=== PATIENT | male | born 1990 | race Caucasian/White ===

== ENCOUNTER 2019-04-24 22:19 | Inpatient (IN) | payer SELFPAY ==
[~2019-04-24] VITALS: Ht 180.3 cm; Wt 125.3 kg
[2019-04-24] MEDS ORDERED: IV NORMAL SALINE 1,000ML 1,000 ML IV ONE (23:00)
--- NOTE | 2019-04-24 23:25 | PHYS DOC ---
Adult General Chief Complaint Chief Complaint: CHEST PAIN HPI HPI 29-year-old male presents with seizure, chest pain and left groin pain. The patient has been drinking a lot of alcohol today. He has been having intermittent central chest tightness and pain. He does not really describe how long it lasts. It is moderate in intensity at its worst. Patient presents to the ER because he was reported to have a witnessed seizure at home. His relatives saw him having tonic-clonic movements. The patient does not remember anything about this. He denies loss of bowel or bladder. He did not bite his tongue. Patient's tells me that he has intermittent seizures. His last one was around . He has not been treated for seizures. He is on no seizure medications. The patient was recently seen in another murmur left-sided groin pain. He had a CT scan which showed that he does not have a hernia. He was diagnosed with muscle strain. He still has discomfort in this area. He denies fever or chills. He has no dysuria or urinary frequency. Review of Systems Review of Systems Constitutional: Denies fever or chills [] Eyes: Denies change in visual acuity, redness, or eye pain [] HENT: Denies nasal congestion or sore throat [] Respiratory: Denies cough or shortness of breath [] Cardiovascular: No additional information not addressed in HPI [] GI: Denies abdominal pain, nausea, vomiting, bloody stools or diarrhea [] : Groin pain[] Musculoskeletal: Denies back pain or joint pain [] Integument: Denies rash or skin lesions [] Neurologic: Seizure. Denies headache, focal weakness or sensory changes [] Endocrine: Denies polyuria or polydipsia [] All other systems were reviewed and found to be within normal limits, except as documented in this note. Current Medications Current Medications Current Medications Medications (Trade) Dose Ordered Sig/David Start Time Stop Time Status Last Admin Dose Admin Sodium Chloride 1,000 ml @ 1,000 mls/hr 1X ONCE 04/24/19 23:00 04/24/19 23:59 04/24/19 23:16 1,000 MLS/HR Allergies Allergies Allergies Coded Allergies Type Severity Reaction Last Updated Verified No Known Drug Allergies 04/24/19 No Physical Exam Physical Exam Constitutional: Well developed, well nourished, no acute distress, intoxicated.[] HENT: Normocephalic, atraumatic, bilateral external ears normal, oropharynx moist, no oral exudates, nose normal. [] Eyes: PERRLA, EOMI, conjunctiva are erythematous, no discharge. [] Neck: Normal range of motion, no tenderness, supple, no stridor. [] Cardiovascular:Heart rate regular rhythm, no murmur [] Lungs & Thorax: Bilateral breath sounds clear to auscultation [] Abdomen: Bowel sounds normal, soft, no tenderness, no masses, no pulsatile masses. [] Skin: Warm, dry, no erythema, no rash. [] Back: No tenderness, no CVA tenderness. [] Extremities: No tenderness, no cyanosis, no clubbing, ROM intact, no edema. [] Neurologic: Alert and oriented X 3, normal motor function, normal sensory functi on, no focal deficits noted. [] Psychologic: Affect normal, judgement normal, mood normal. [] EKG EKG Sinus rhythm, rate 97, normal axis, no ST elevations or depressions.[] Radiology/Procedures Radiology/Procedures [] Course & Med Decision Making Course & Med Decision Making Pertinent Labs and Imaging studies reviewed. (See chart for details) The patient's EKG is unremarkable. His head CT is unremarkable. Chest x-rays negative for acute findings. The patient's troponin is 0.079. I have no previous troponins for comparison. The patient will be given Aspirin 324mg. His toxicology screen is positive for alcohol, but no other drugs. I will admit the patient for chest pain rule out. Dr. Hilario has accepted the patient for admission. [] Dragon Disclaimer Dragon Disclaimer This electronic medical record was generated, in whole or in part, using a voice recognition dictation system. The HEART Score for CP Pts HEART Score for Chest Pain: HEART Score for Chest Pain Response (Comments) Value History Moderately Suspicious 1 ECG Nonspecific Repolarizatio 1 Age < 45 0 Risk Factors 1 or 2 Risk Factors 1 Troponin >1-<3x Normal Limit 1 Total 4 Risk Factors: Risk Factors: DM, Current or recent (<one month) smoker, HTN, HLP, family history of CAD, obesity. Risk Scores: Score 0 - 3: 2.5% MACE over next 6 weeks - Discharge Home Score 4 - 6: 20.3% MACE over next 6 weeks - Admit for Clinical Observation Score 7 - 10: 72.7% MACE over next 6 weeks - Early Invasive Strategies Departure Departure: Impression: Primary Impression: Chest pain Additional Impressions: Seizure Alcohol intoxication Elevated troponin I level Disposition: ADMITTED INPATIENT Admitting Physician: Marika Hilario Condition: STABLE Referrals: VERA BYRD (PCP) Problem Qualifiers JULIO C MAE DO Apr 24, 2019 23:25
[2019-04-24 23:33] LABS: BASO # 0.1 x10^3/uL (0.0-0.2); BASO % 1 % (0-3); EOS # 0.1 x10^3/uL (0.0-0.7); EOS % 1 % (0-3); HEMATOCRIT 43.5 % (39.0-53.0); HEMOGLOBIN 15.3 g/dL (13.0-17.5); LYMPH # 2.2 x10^3/uL (1.0-4.8); LYMPH % 23 % (24-48); MEAN CORPUSCULAR HEMOGLOBIN 33 pg (25-35); MEAN CORPUSCULAR HGB CONC 35 g/dL (31-37); MEAN CORPUSCULAR VOLUME 95 fL (79-100); MONO # 0.9 x10^3/uL (0.0-1.1); MONO % 9 % (0-9); NEUT # 6.5 x10^3uL (1.8-7.7); NEUT % 67 % (31-73); PLATELET COUNT 188 x10^3/uL (140-400); RED BLOOD COUNT 4.59 x10^6/uL (4.30-5.70); RED CELL DISTRIBUTION WIDTH 13.6 % (11.5-14.5); WHITE BLOOD COUNT 9.8 x10^3/uL (4.0-11.0)
[2019-04-24 23:38] LABS: BARBITURATES NEG (NEG); BENZODIAZEPINES NEG (NEG); CANNABINOIDS NEG (NEG); COCAINE NEG (NEG); METHADONE NEG (NEG); OPIATES NEG (NEG); PHENCYCLIDINE NEG (NEG)
[2019-04-24 23:39] LABS: AMPHETAMINE/METHAMPHETAMINE NEG (NEG)
[2019-04-24 23:47] LABS: ALBUMIN 3.4 g/dL (3.4-5.0); ALBUMIN/GLOBULIN RATIO 0.9 (1.0-1.7); CALCIUM 8.6 mg/dL (8.5-10.1); CREATININE 0.7 mg/dL (0.7-1.3); GFR 133.3; POTASSIUM 3.2 mmol/L (3.5-5.1); TOTAL BILIRUBIN 0.5 mg/dL (0.2-1.0); TOTAL PROTEIN 7.2 g/dL (6.4-8.2)
--- NOTE | 2019-04-24 23:51 | RAD ---
EXAM: CT HEAD WITHOUT CONTRAST. HISTORY: Seizures. TECHNIQUE: Computed tomography of the head was performed without intravenous contrast. COMPARISON: None. FINDINGS: There is no intracranial hemorrhage. Cleary-white differentiation is preserved. The ventricles are normal in size and position. The visualized paranasal sinuses appear clear. The orbits are unremarkable. The temporal bones are unremarkable. The calvarium reveals no suspicious lesions. IMPRESSION: 1. No acute intracranial findings. *One or more of the following individualized dose reduction techniques were utilized for this examination: 1. Automated exposure control. 2. Adjustment of the mA and/or kV according to patient size. 3. Use of iterative reconstruction technique. Electronically signed by: Irish Saenz MD (04/24/2019 11:48 PM) [facility]
[2019-04-24 23:54] LABS: BACTERIA,URINE 0 /HPF (0-FEW); BILIRUBIN,URINE NEG (NEG); CLARITY,URINE CLEAR; COLOR,URINE STRAW; GLUCOSE,URINE NEG (NEG); NITRITE,URINE NEG (NEG); RBC,URINE 0 /HPF (0-2); SQUAMOUS EPITHELIAL CELL,UR OCC /LPF; UROBILINOGEN,URINE 0.2 mg/dL (0.2 mg/dL); WBC,URINE OCC /HPF (0-4)
[2019-04-25] MEDS ORDERED: ONDANSETRON PF 4 MG/2 ML VIAL. IV PRN (00:45)
--- NOTE | 2019-04-25 00:54 | RAD ---
EXAM: CHEST ONE VIEW. HISTORY: Chest pain. COMPARISON: 04/27/2015. FINDINGS: A frontal view of the chest is obtained. The inspiration is small. There are no confluent infiltrates. There is no pneumothorax or pleural effusion. The heart size is prominent, but this is likely exaggerated in this projection. IMPRESSION: 1. Small inspiration. No confluent infiltrates. Electronically signed by: Irish Saenz MD (04/25/2019 12:52 AM) [facility]
[2019-04-25 01:56] VITALS: BP 146/81
[2019-04-25] MEDS ORDERED: RISP1TAB3 PO (02:13)
[2019-04-25] MEDS ORDERED: ESCI10TA2 PO (02:13)
[2019-04-25] MEDS ORDERED: TRAZ-120 PO (02:13)
[2019-04-25] MEDS ORDERED: HYDR25TA PO (02:13)
[2019-04-25] MEDS ORDERED: HYDR25CA75 PO (02:13)
[2019-04-25] MEDS ORDERED: LISI10TA2 PO (02:13)
[2019-04-25 05:49] VITALS: BP 117/77
[2019-04-25] MEDS ORDERED: hydrOXYzine PAMOATE 25 MG CAPSULE PO PRN (06:15)
[2019-04-25] MEDS: LISINOPRIL 10 MG TABLET PO SCH (08:18)
[2019-04-25] MEDS: risperiDONE 1 MG TABLET. PO SCH (08:18)
[2019-04-25] MEDS: CITALOPRAM 20 MG TABLET. PO SCH (08:18)
[2019-04-25] MEDS ORDERED: STARTER PACK-hydrOXYzine 1 STARTPACK TABLET PO SCH (09:00)
[2019-04-25 11:41] VITALS: BP 134/81
[2019-04-25] MEDS ORDERED: diphenhydrAMINE 50 MG/ML VIAL IVP PRN (12:45)
[2019-04-25] MEDS ORDERED: HALOPERIDOL LACT 5 MG/ML VIAL. IM PRN (12:45)
[2019-04-25] MEDS ORDERED: LORazepam 1 MG TABLET PO PRN ×2 (12:45)
[2019-04-25] MEDS ORDERED: chlordiazePOXIDE HCL 25 MG CAPSULE PO PRN ×2 (12:45)
[2019-04-25] MEDS ORDERED: POTASSIUM CHLORIDE 20 MEQ TABLET.ER. PO ONE (13:00)
--- NOTE | 2019-04-25 14:17 | HP ---
ADMIT DATE: 04/25/2019 HISTORY OF PRESENT ILLNESS: The patient is a 29-year-old male patient who was brought to the Emergency Room as he apparently was witnessed to have seizure-like activity, had been drinking a lot of alcohol, had been having intermittent central chest tightness and pain. He does not really describe how long it lasted, moderate intensity at its worst. He came to the Emergency Room because it was reported that he had witnessed seizure at home. His relatives saw him having tonic-clonic movement, did not remember anything about this. He denied any loss of bowel or bladder control. He did not bite his tongue. He said that he has had intermittent seizures before, the last one was around ; however, he has not been treated for seizure. He is on no seizure medication. He was seen in another facility for left-sided groin pain, had a CT scan showed that he does not have hernia. He was diagnosed with muscle strain and he continued to have discomfort in that area. He denied any dysuria, frequency or hematuria. He was evaluated in the Emergency Room, has had an EKG, which showed that he was in normal sinus rhythm at 97 beats per minute, no ST segment depression or elevation. His CT scan of the head was unremarkable. Chest x-ray was negative for acute finding. However, his troponin was elevated at 0.079. His toxicology screen was positive for alcohol, but negative for other drugs. The patient was admitted to do 2 more sets of cardiac enzymes, consult Cardiology as well as Neurology given that he has seizure disorder. PAST MEDICAL HISTORY: Significant for obviously alcoholism. He said that he has been drinking alcohol since he was 13 years old, has been drinking for the last 16 years, drinking anything including vodka or whiskey and beer. He also is known to have hypertension, autism. PAST SURGICAL HISTORY: Unremarkable. ALLERGIES: He has no known drug allergies. MEDICATIONS: He is currently on following medications: He is on lisinopril 10 mg once a day, escitalopram oxalate 10 mg once a day, trazodone 50 mg at bedtime, risperidone 1 mg daily, hydroxyzine 25 mg 4 times a day and 25 mg 4 times a day as needed. FAMILY HISTORY: He has one older brother who does not keep in touch with. Sister seems to be healthy. His father is a recovering alcoholic. He is alive at the age of 56. Mother at age of 49 because of breast cancer. SOCIAL HISTORY: He is single, has no children. He smokes a pack a day, drinks alcohol daily. He works at the [employer]. REVIEW OF SYSTEMS: The patient denied any blurring of vision, cataract, glaucoma or macular degeneration. Denied any earache, tinnitus or sensorineural deafness. Denied any nosebleeds, stuffy nose or postnasal drip. Denied any sore throat, sore tongue, toothache, hoarseness of voice or difficulty swallowing. Denied any nausea, vomiting, diarrhea or constipation. Denied any hematemesis, melena or hematochezia. Denied any dysuria, frequency or hematuria. He did complain of chest discomfort, but denied any shortness of breath, orthopnea, paroxysmal nocturnal dyspnea. Denied any cough, phlegm or hemoptysis. Denied any chills, rigors or fever. Denied any dizziness, lightheadedness or vertigo. PHYSICAL EXAMINATION: GENERAL: On arrival to the Emergency Room, he looked well and was clearly in no apparent respiratory distress. There was no pallor, jaundice, cyanosis or thyromegaly. No jugular venous distension. No lower limb edema. VITAL SIGNS: Her heart rate was 96, blood pressure was 138/82, temperature was 98.8, respiratory rate was 22 and oxygen saturation was 96%. HEAD, EYES, EARS, NOSE AND THROAT: Showed normocephalic, atraumatic. NECK: Supple. HEART: Showed normal first and second heart sounds. No gallop, rub or murmur. CHEST: Clear to auscultation. No crepitation or rhonchi. ABDOMEN: Distended, soft, nontender. NEUROLOGIC: He was awake, alert, responding appropriately. All cranial nerves intact. EXTREMITIES: He moves all extremities without difficulty, ambulates without assistance or assistive devices. LABORATORY DATA: His white cell count was 9800, hemoglobin 15, hematocrit 44, MCV 95 and platelet count 288,000. His chemistry showed serum sodium 139, potassium 3.2, chloride 104, bicarbonate 24, anion gap of 11, BUN 6, creatinine 0.7, estimated GFR was 133 mL per minute. His glucose was 89, calcium was 8.6. Total bilirubin, AST, ALT, alkaline phosphatase were normal. His first set of troponin was 0.079. Total protein was 7.2, albumin 3.4. Urinalysis was unremarkable. Toxic screen was positive for alcohol. He has had a CT scan of the head, which showed there is no intracranial hemorrhage, pablo-white differentiation is preserved, ventricles are normal in size and position. The visualized paranasal sinuses appear clear. The orbits are unremarkable. The temporal bones are unremarkable. The calvarium reveals no suspicious lesions. Chest x-ray Showed there is no confluent infiltrate. There is no pneumothorax or pleural effusion. The heart size is prominent, but is likely exaggerated in this projection. PLAN: Do 2 more sets of cardiac enzymes. We will check his fasting lipid profile. We have consulted the Cardiology to decide on further management accordingly. We did consult the neurologist and we will start him on alcohol withdrawal protocol. YVROSE WEN MD DR: KRISTI/fei JOB#: [id number] / [id number]
[2019-04-25 15:01] VITALS: BP 130/87
[2019-04-25] MEDS: NICOTINE 21MG PATCH. TD SCH (20:27)
[2019-04-25] MEDS ORDERED: traZODone 50 MG TABLET. PO SCH (21:00)
[2019-04-25 23:34] VITALS: BP 130/85
--- NOTE | 2019-04-26 01:36 | CONS ---
DATE OF CONSULTATION: REFERRING PHYSICIAN: Dr. Hilario. REASON FOR CONSULTATION: New onset of seizure. HISTORY OF PRESENT ILLNESS: This is a 29-year-old right-handed male who was admitted through Emergency Room after he presented with new onset of seizure described as generalized tonic-clonic seizure. The patient did not recall the event. He denies any previous seizure in near past; however, he did have seizure disorder at age of 6, but currently has not been taking any anticonvulsant. Currently, the patient complains of generalized weakness and tiredness. He has been drinking alcohol heavily in the last week, and he said he drinks 1 gallon of whiskey daily. The patient denies any history of alcohol withdrawal. Currently, he denies headaches, visual disturbances, nausea, vomiting, chest pain, shortness of breath or palpitations. He described substernal and gastric pain, probably due to alcohol heavy drinking. Initial enhanced head CT scan revealed no acute intracranial process. PAST MEDICAL HISTORY: Significant for anxiety, depression, obesity, hypertension, chronic low back pain, autism, difficulty sleeping. FAMILY HISTORY: Noncontributory. SOCIAL HISTORY: The patient is single. 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 He smokes 1 pack of cigarettes daily. He drinks alcohol heavily. CURRENT HOME MEDICATIONS: Trazodone 50 mg nightly, Celexa 20 mg daily, Risperdal 1 mg daily, lisinopril 10 mg p.o. daily, and hydroxyzine 25 mg q.i.d. p.r.n. for anxiety. ALLERGIES: No known drug allergies. REVIEW OF SYSTEMS: A 10-point review of system was performed as mentioned above in history of present illness. PHYSICAL EXAMINATION: GENERAL: Obese male, not in acute distress. VITAL SIGNS: Blood pressure 170/77, respiratory rate 20, pulse is 74 and regular, temperature is 98.2, oxygen saturation 96% on room air. HEENT: Normocephalic, atraumatic, otherwise unremarkable. NECK: Supple. Negative for carotid bruit, lymphadenopathy or thyromegaly. LUNGS: Clear to A and P. CARDIOVASCULAR: Regular rate and rhythm, normal S1, S2. There is no S3, S4 or murmur. ABDOMEN: Soft. Bowel sounds positive. EXTREMITIES: Negative for cyanosis, clubbing or pitting edema. NEUROLOGIC: MENTAL STATUS: The patient is alert and oriented x 3. Speech is fluent. There is no language dysfunction. Judgment and abstract thinking are fair. The patient denies hallucination or delusion. CRANIAL NERVES: Visual conde are full. The pupils are reactive to light and accommodation. The extraocular movements are intact. There is no nystagmus. There is no facial motor or sensory deficit. Hearing is intact bilaterally. The palate is elevated symmetrically. Sternocleidomastoid muscles are powerful bilaterally. The patient shrugs his shoulders symmetrically, protrudes his tongue in the midline without fasciculation or atrophy. MOTOR: No focal muscle bulk was seen. The tone is normal. The strength is 5/5 throughout. SENSORY EXAMINATION: Normal pinprick, light touch, vibratory and position senses. Deep tendon reflexes were symmetric and active without pathologic responses. Gait and coordination are normal. LABORATORY DATA: CBC revealed white blood cells of 9800, hemoglobin 15.3, hematocrit 43.5, platelet count 188,000. Chemistry revealed sodium 139, potassium 3.2, chloride 104, CO2 of 24, BUN 6, creatinine 0.7, glucose is 89, calcium is 8.6. Troponin level is 0.7. The patient had 3 series and was around 0.068 from this morning. Urinalysis is negative for urinary tract infections, but urine drug screen is positive for alcohol. CT scan and chest x-ray as mentioned above in history of present illness. IMPRESSION: 1. Seizure-like activity described as tonic-clonic seizure, possible epileptic versus nonepileptic or alcohol withdrawal seizure.. 2. Alcohol drinking. 3. Multiple medical problems including hypertension, obesity, chronic lower back pain, anxiety and depression, history of seizure disorder since age of 6. No recurrence until recently. RECOMMENDATIONS: 1. The patient needs an electroencephalogram which can be done on an outpatient basis. 2. The patient should avoid driving until the above test is done. 3. Continue with current management initiated by Dr. Hilario. 4. Alcohol cessation. 5. Watch for alcohol withdrawal seizure or symptoms. M Niya COLEMAN MD DR: ELIE/fei JOB#: [id number] / [id number]
[2019-04-26 06:24] VITALS: BP 148/82
[2019-04-26 07:48] LABS: CALCIUM 8.4 mg/dL (8.5-10.1); CREATININE 0.7 mg/dL (0.7-1.3); GFR 133.3; POTASSIUM 3.5 mmol/L (3.5-5.1)
[2019-04-26] MEDS: CITALOPRAM 20 MG TABLET. PO SCH (08:25)
[2019-04-26] MEDS: LISINOPRIL 10 MG TABLET PO SCH (08:25)
[2019-04-26] MEDS: risperiDONE 1 MG TABLET. PO SCH (08:25)
[2019-04-26] MEDS: NICOTINE 21MG PATCH. TD SCH (08:27)
[2019-04-26] MEDS ORDERED: FOLIC ACID 1 MG TABLET PO SCH (09:00)
[2019-04-26] MEDS ORDERED: MULTIVITAMIN with MINERAL TABLET. PO SCH (09:00)
[2019-04-26 10:51] VITALS: BP 146/88
[2019-04-26 14:25] VITALS: BP 139/81
--- NOTE | 2019-04-26 14:30 | CARD ---
MR#: [id number] Date of Study: 04/26/2019 Ordering Physician: BRUNO MUELLER, Referring Physician: BRUNO MUELLER, Tech: Laura Resendez RDCS APPROVED REPORT EXAM: Two-dimensional and M-mode echocardiogram with Doppler and color Doppler. Other Information Quality : Good INDICATION Elevated Troponin 2D DIMENSIONS RVDd3.6 (2.9-3.5cm)Left Atrium(2D)4.0 (1.6-4.0cm) IVSd1.2 (0.7-1.1cm)Aortic Root(2D)3.3 (2.0-3.7cm) LVDd6.0 (3.9-5.9cm)PWd1.1 (0.7-1.1cm) LVDs4.2 (2.5-4.0cm)FS (%) 29.0 % SV98.0 mlLVEF(%)54.9 (>50%) Aortic Valve AoV Peak Charlie.150.2cm/sAoV VTI29.8cm AO Peak GR.9.0mmHgAO Mean GR.5mmHg MELINA (VTI)3.03cm2 Mitral Valve MV E Vnbqagti773.1cm/sMV DECEL [id number] MV A Yytolyiy66.4cm/sE/A Ratio2.4 Tricuspid Valve TR P. Vncnfgmx174gr/sRAP [id number] TR Peak Gr.95alAmPJFN71nwSd LEFT VENTRICLE The left ventricle is normal size. There is mild concentric left ventricular hypertrophy. Left ventri doris systolic function is normal. The Ejection Fraction is 50-55%. There is normal LV segmental wall m otion. Transmitral Doppler flow pattern is Grade II-pseudonormal filling dynamics. RIGHT VENTRICLE The right ventricle is normal size. The right ventricular systolic function is normal. ATRIA The left atrium size is normal. The right atrium size is normal. The interatrial septum is intact wit h no evidence for an atrial septal defect or patent foramen ovale as noted on 2-D or Doppler imaging. AORTIC VALVE The aortic valve is normal in structure and function. Doppler and Color Flow revealed no significant aortic regurgitation. There is no significant aortic valvular stenosis. MITRAL VALVE The mitral valve is normal in structure and function. There is no evidence of mitral valve prolapse. There is no mitral valve stenosis. Doppler and Color Flow revealed no mitral valve regurgitation note d. TRICUSPID VALVE The tricuspid valve is normal in structure and function. Doppler and Color Flow revealed trace tricus pid regurgitation. The PA pressure was estimated at 29 mmHg. There is no tricuspid valve stenosis. PULMONIC VALVE The pulmonic valve is not well visualized. Doppler and Color Flow revealed no pulmonic valvular regur gitation. There is no pulmonic valvular stenosis. GREAT VESSELS The aortic root is normal in size. The ascending aorta is normal in size. The IVC is normal in size a nd collapses >50% with inspiration. PERICARDIAL EFFUSION There is no evidence of significant pericardial effusion. Critical Notification Critical Value: No <Conclusion> The left ventricle is normal size. Left ventricle systolic function is normal. The Ejection Fraction is 50-55%. There is mild concentric left ventricular hypertrophy. There is no significant aortic valvular stenosis. Doppler and Color Flow revealed no significant aortic regurgitation. Doppler and Color Flow revealed no mitral valve regurgitation noted. Doppler and Color Flow revealed trace tricuspid regurgitation. The PA pressure was estimated at 29 mmHg. Signed by : Bruno Mueller MD Electronically Approved : 04/26/2019 14:29:57
--- NOTE | 2019-04-27 01:02 | DS ---
DATE OF DISCHARGE: 04/26/2019 HISTORY OF PRESENT ILLNESS: The patient is a 29-year-old male patient who was admitted to the Emergency Room who apparently was witnessed to have seizure-like activity, had been drinking a lot of alcohol and had intermittent central chest tightness and pain. He is not really very specific about it but however his cardiac enzyme was slightly elevated and his first troponin was 0.079, 0.07 and 0.068. His fasting lipid profile was normal. The expressive therapist recommended doing an echocardiogram which was done and showed that the patient's left ventricle is normal in size. Left ventricular systolic function is normal, ejection fraction of 50-55%. There is mild concentric left ventricular hypertrophy. No significant aortic valvular stenosis, no significant aortic regurgitation, no mitral valve regurgitation, trace tricuspid regurgitation. Estimated pulmonary artery pressure was 29 mmHg. He was seen in consultation by Dr. Chavez who recommended an EEG as an outpatient and the patient remained hemodynamically stable. A decision was made to discharge him home, to follow with Dr. Chavez. PHYSICAL EXAMINATION: GENERAL: When I saw him today, he looked well and was clearly in no apparent respiratory distress. No pallor, jaundice, cyanosis or thyromegaly. No jugular venous distention. No limb edema. VITAL SIGNS: Her heart rate was 74, blood pressure was 139/81, temperature was 97.8, respiratory rate 20 and oxygen saturation was 98%. The rest of clinical exam is stable. LABORATORY DATA: His lab work this morning showed a serum sodium 140, potassium 3.5, chloride 108, bicarbonate 23, anion gap of 9, BUN 8, creatinine 0.7, estimated GFR was 133 mL per minute, his glucose 110, calcium was 8.4, magnesium 2. Serum triglyceride 134, total cholesterol 95, LDL cholesterol 32, VLDL was 26, HDL was 37, the ratio was 2. His hemoglobin 15, hematocrit 44, with normal white cell count and platelets. Urinalysis was unremarkable and toxic screen was positive for alcohol. DISCHARGE MEDICATIONS: He was discharged on escitalopram oxalate 10 mg once a day, hydroxyzine 25 mg 4 times a day, lisinopril 10 mg once a day, risperidone 1 mg daily and trazodone 50 mg at bedtime. FINAL DISCHARGE DIAGNOSES: Seizure-like activity described as tonic-clonic seizure, alcohol dependence, alcohol intoxication, hypertension, obesity, chronic lower back pain, anxiety and depression. YVROSE WEN MD DR: KRISTI/fei JOB#: [id number] / [id number]
--- NOTE | 2019-04-29 06:38 | EKG ---
[address] [address] Test Date: 2019-04-24 Test Time: 22:32:08 Pat Name: DEION NOLASCO Department: Room: 123 A Gender: M Shoe Maker: : 1990 Requested By: YVROSE WEN Order Number: [id number] Reading MD: Measurements Intervals [place] Rate: 97 P: 26 FL: 136 QRS: 36 QRSD: 100 T: 20 QT: 354 QTc: 454 Interpretive Statements SINUS RHYTHM QRS(T) CONTOUR ABNORMALITY CONSIDER INFERIOR MYOCARDIAL DAMAGE POSSIBLY ABNORMAL ECG RI6.01 No previous ECG available for comparison
== END 2019-04-26 16:35 | disposition home or self-care (01) | DRG 101 ==
LOC: ER 22:19 → 1 SOUTH 04-25 01:03
PROVIDERS: ADMIT Internal Medicine; ATTEND Internal Medicine
DX: G40.409 Other generalized epilepsy and epileptic syndromes, not intractable, without status epilepticus (principal); F84.0 Autistic disorder; F10.229 Alcohol dependence with intoxication, unspecified; F17.210 Nicotine dependence, cigarettes, uncomplicated; F32.9 Major depressive disorder, single episode, unspecified; F41.9 Anxiety disorder, unspecified; E66.9 Obesity, unspecified; G89.29 Other chronic pain; I11.9 Hypertensive heart disease without heart failure; Z80.3 Family history of malignant neoplasm of breast; Z68.38 Body mass index [BMI] 38.0-38.9, adult; Z79.899 Other long term (current) drug therapy
CPT/HCPCS: 36415; 70450; 71045; 80048; 80053; 80061; 80307; 81001; 83735; 84484; 85025; 93306; 96360; 99406; Q0177; 99285-25; J7030

== ENCOUNTER 2021-06-19 12:45 | Emergency (ER) | payer SELFPAY ==
[~2021-06-19] VITALS: Ht 180.3 cm; Wt 122.0 kg
[~2021-06-19 12:45] MED LIST: ESCI10TA90 PO; HYDR25CA75 PO; HYDR25TA PO; LISI10TA16 PO; RISP1TAB88 PO; TRAZ-120 PO
[2021-06-19 13:12] VITALS: BP 164/87
[2021-06-19] MEDS ORDERED: LISI10TA16 PO (13:35)
--- NOTE | 2021-06-19 13:36 | PHYS DOC ---
Past History Past Medical History: Alcoholism, Anxiety, Hypertension, Seizure Past Surgical History: No Surgical History Alcohol Use: Heavy Drug Use: None General Adult EDM: Chief Complaint: HYPERTENSION HPI: HPI: Patient is a [age] year old [sex] who presents with [] Review of Systems: Review of Systems: Constitutional: Denies fever or chills Eyes: Denies change in visual acuity HENT: Denies nasal congestion or sore throat Respiratory: Denies cough or shortness of breath Cardiovascular: Denies chest pain or edema GI: Denies abdominal pain, nausea, vomiting, bloody stools or diarrhea : Denies dysuria Musculoskeletal: Denies back pain or joint pain Integument: Denies rash Neurologic: Denies headache, focal weakness or sensory changes Endocrine: Denies polyuria or polydipsia Lymphatic: Denies swollen glands Psychiatric: Denies depression or anxiety Allergies: Allergies: Allergies Coded Allergies Type Severity Reaction Last Updated Verified No Known Drug Allergies 04/24/19 No Physical Exam: PE: Constitutional: Well developed, well nourished, no acute distress, non-toxic appearance. [] HENT: Normocephalic, atraumatic, bilateral external ears normal, oropharynx moist, no oral exudates, nose normal. [] Eyes: PERRLA, EOMI, conjunctiva normal, no discharge. [] Neck: Normal range of motion, no tenderness, supple, no stridor. [] Cardiovascular:Heart rate regular rhythm, no murmur [] Lungs & Thorax: Bilateral breath sounds clear to auscultation [] Abdomen: Bowel sounds normal, soft, no tenderness, no masses, no pulsatile masses. [] Skin: Warm, dry, no erythema, no rash. [] Back: No tenderness, no CVA tenderness. [] Extremities: No tenderness, no cyanosis, no clubbing, ROM intact, no edema. [] Neurologic: Alert and oriented X 3, normal motor function, normal sensory function, no focal deficits noted. [] Psychologic: Affect normal, judgement normal, mood normal. [] Current Patient Data: Vital Signs: Vital Signs Date Time Temp Pulse Resp B/P (MAP) Pulse Ox O2 Delivery O2 Flow Rate FiO2 06/19/21 13:12 100 16 164/87 (112) 96 Room Air 06/19/21 12:53 97.9 EKG: EKG: @1312 NSR at 99bpm, NO ST elevation, PACs, QRS 96ms, QT/QTc 360/468ms Radiology/Procedures: Radiology/Procedures: [] Heart Score: Risk Factors: Risk Factors: DM, Current or recent (<one month) smoker, HTN, HLP, family history of CAD, obesity. Risk Scores: Score 0 - 3: 2.5% MACE over next 6 weeks - Discharge Home Score 4 - 6: 20.3% MACE over next 6 weeks - Admit for Clinical Observation Score 7 - 10: 72.7% MACE over next 6 weeks - Early Invasive Strategies Course & Med Decision Making: Course & Med Decision Making Pertinent Labs and Imaging studies reviewed. (See chart for details) [] Dragon Disclaimer: Dragon Disclaimer: This electronic medical record was generated, in whole or in part, using a voice recognition dictation system. Departure Departure: Impression: Primary Impression: Hypertension Qualified Codes: I10 - Essential (primary) hypertension Additional Impressions: Medication refill Noncompliance with medications Disposition: HOME / SELF CARE / HOMELESS Condition: STABLE Referrals: VERA BYRD (PCP) Patient Instructions: Hypertension, Medication Refill, Emergency Department Scripts Lisinopril (LISINOPRIL) 10 Mg Tablet 1 TAB PO DAILY for HTN, #14 TAB Prov: APRIL BOLAÑOS DO 06/19/21 APRIL BOLAÑOS DO Jun 19, 2021 13:36
--- NOTE | 2021-06-19 14:49 | EKG ---
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
== END 2021-06-19 13:45 | disposition home or self-care (01) ==
LOC: ER 12:45
DX: I10 Essential (primary) hypertension (principal); Z76.0 Encounter for issue of repeat prescription
CPT/HCPCS: 93005; 99283

== ENCOUNTER 2021-07-15 08:53 | Emergency (ER) | payer SELFPAY ==
[~2021-07-15] VITALS: Ht 180.3 cm; Wt 122.0 kg
[2021-07-15 08:53] VITALS: BP 131/78
--- NOTE | 2021-07-15 08:58 | PHYS DOC ---
Past History Past Medical History: Alcoholism, Anxiety, Hypertension, Seizure Past Surgical History: No Surgical History Alcohol Use: Heavy Drug Use: None Adult General Chief Complaint Chief Complaint: CHEST PAIN HPI HPI Patient is a 31-year-old male presenting via EMS for chest pain. States chest pain started 1 week ago without any known event, trauma, ingestion or other exposure. Rest makes better, physical activity makes worse. Pain is described as dull pressure over center of sternum and does not radiate. Patient states chronicity of symptoms concerned him to prompting him to come in. He has history of alcohol abuse with last drink approximately 3 days ago. Also admits to tobacco use. Has history of hypertension for which he takes lisinopril but no other known diagnosed medical conditions. Does admit to family history of early cardiac disease less than 50 years old. No personal history of passing out with activity or other concerning abnormalities. He has no known sick contacts or travel, is not vaccinated against COVID-19 Review of Systems Review of Systems Fourteen body systems of review of systems have been reviewed. See HPI for pertinent positives and negative responses, other [place] all other systems are negative, non-pertinent or non-contributory Allergies Allergies Allergies Coded Allergies Type Severity Reaction Last Updated Verified No Known Drug Allergies 04/24/19 No Physical Exam Physical Exam Constitutional: Well developed, well nourished, no acute distress, non-toxic appearance. HENT: Normocephalic, atraumatic, bilateral external ears normal, oropharynx mois t, no oral exudates, nose normal. Eyes: PERRLA, EOMI, conjunctiva normal, no discharge. Neck: Normal range of motion, no tenderness, supple, no stridor. Cardiovascular: Heart rate regular, sinus rhythm, no murmurs rubs or gallops Lungs & Thorax: Bilateral breath sounds clear to auscultation Abdomen: Bowel sounds normal, soft, no tenderness, no masses, no pulsatile masses. Nonsurgical abdomen, no peritoneal signs Skin: Warm, dry, no erythema, no rash. Back: No tenderness, no CVA tenderness. Extremities: No tenderness, no cyanosis, no clubbing, ROM intact, no edema. Neurologic: Alert and oriented X 3, grossly normal motor & sensory function, no focal deficits noted. Psychologic: Anxious affect and mood Current Patient Data Vital Signs Vital Signs Date Time Temp Pulse Resp B/P (MAP) Pulse Ox O2 Delivery O2 Flow Rate FiO2 11/7/21 08:53 77 20 131/78 (95) 99 Room Air 07/15/21 08:53 97.9 Vital Signs Date Time Temp Pulse Resp B/P (MAP) Pulse Ox O2 Delivery O2 Flow Rate FiO2 07/15/21 08:53 97.9 77 131/78 (95) 99 07/15/21 08:53 20 Room Air Lab Results Current Medications Medications (Trade) Dose Ordered Sig/David Route PRN Reason Start Time Stop Time Status Last Admin Dose Admin Aspirin (Jessica Aspirin) 325 mg 1X ONCE PO 07/15/21 09:15 07/15/21 09:16 DC 07/15/21 09:18 Lorazepam (Ativan Inj) 2 mg STK-MED ONCE .ROUTE 07/15/21 09:09 07/15/21 09:09 DC Lorazepam (Ativan Inj) 1 mg 1X ONCE IVP 07/15/21 09:15 07/15/21 09:16 DC 07/15/21 09:11 EKG EKG EKG ordered and interpreted by myself at 09 902 hours as sinus rhythm at 75 bpm, unremarkable intervals, no axis deviation, no obvious ischemic findings, no STEMI Radiology/Procedures Radiology/Procedures INDICATION: Reason: chest pain / Spl. Instructions: / History: COMPARISON: April 2019 FINDINGS: Single view of chest obtained. Repeat demonstration of prominent cardiomediastinal silhouette which is similar to prior. Minimal haziness at the lung bases without consolidation elsewhere in the lungs IMPRESSION: * Minimal haziness at lung bases without consolidation elsewhere in the lungs. Given the location the most likely cause would be atelectasis. * Cardiac silhouette again prominent. Electronically signed by: Demario Woo MD (07/15/2021 9:19 AM) [id number] Heart Score C/O Chest Pain: Yes HEART Score for Chest Pain: HEART Score for Chest Pain Response (Comments) Value History Slighlty/Non-Suspicious 0 ECG Normal 0 Age < 45 0 Risk Factors 1 or 2 Risk Factors 1 Troponin < Normal Limit 0 Total 1 Risk Factors: Risk Factors: DM, Current or recent (<one month) smoker, HTN, HLP, family history of CAD, obesity. Risk Scores: Risk Factors: DM, Current or recent (<one month) smoker, HTN, HLP, family history of CAD, obesity. Course & Med Decision Making Course & Med Decision Making ABCs unremarkable. I disclosed entirety of ER findings and discussed most likely diagnosis of chest pain, likely noncardiac and atypical in etiology. Other diagnoses were discussed with patient such as ACS, pneumothorax, pneumonia and other potentially life-threatening diagnoses but all deemed less likely causes of patient's presentation. I reviewed heart score, PERC etc. and all unremarkable, disclose little indication for further diagnostic work-up and/or need for hospitalization at present. Supportive care with close outpatient PCP and senior graphic designer follow-up advised. Plan of care discussed at length with need for close outpatient follow-up to review today's ER visit stressed. Strict return precautions were also discussed at length with good understanding verbalized by patient. Patient voiced understanding and agreement with the plan. Patient knows to come back for repeat evaluation if concerning signs or symptoms present prior to outpatient follow-up. Hemodynamically stable, ambulatory and well-appearing at time of disposition. Dragon Disclaimer Dragon Disclaimer This electronic medical record was generated, in whole or in part, using a voice recognition dictation system. Departure Departure: Impression: Primary Impression: Atypical chest pain Additional Impression: Person under investigation for COVID-19 Disposition: HOME / SELF CARE / HOMELESS Condition: STABLE Referrals: VERA BYRD (PCP) Additional Instructions: You were seen for chest pain. Your workup did not show any acute abnormalities today, but does not indicate that you do not have underlying cardiovascular disease. You do need to follow up with your primary doctor and potentially a senior graphic designer for further evaluation and treatment. You should return to the ED if you develop worsening chest pain, shortness of breath, fever, abnormal sweating, leg swelling, or any other new or concerning symptoms. You were seen for fatigue and possible infection with COVID-19. Your physical exam was reassuring. Your chest x-ray was normal. We tested you for COVID-19 but this test does not come back for 1 to 2 days. In the meantime you need to quarantine yourself at home away from all other individuals, especially those who are elderly or have any other chronic health issues or an immunocompromised status. You should return to the ED if you develop worsening cough, shortness of breath, chest pain, or any other new or concerning symptoms. Alternate Tylenol and ibuprofen as needed for body aches and pain. If your test does come back positive you need to quarantine yourself for 10 days until symptom-free. You should make sure to drink plenty of fluids and get plenty of rest. Problem Qualifiers REED ABREU DO Jul 15, 2021 08:58
--- NOTE | 2021-07-15 09:09 | EKG ---
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
[2021-07-15] MEDS ORDERED: ASPIRIN 325 MG TABLET PO ONE (09:15)
--- NOTE | 2021-07-15 09:21 | RAD ---
INDICATION: Reason: chest pain / Spl. Instructions: / History: COMPARISON: April 2019 FINDINGS: Single view of chest obtained. Repeat demonstration of prominent cardiomediastinal silhouette which is similar to prior. Minimal haziness at the lung bases without consolidation elsewhere in the lungs IMPRESSION: * Minimal haziness at lung bases without consolidation elsewhere in the lungs. Given the location th e most likely cause would be atelectasis. * Cardiac silhouette again prominent. Electronically signed by: Demario Woo MD (07/15/2021 9:19 AM) [id number]
[2021-07-15 10:02] LABS: CALCIUM 9.4 mg/dL (8.5-10.1); CREATININE 0.5 mg/dL (0.7-1.3); GFR 193.9; POTASSIUM 4.5 mmol/L (3.5-5.1)
[2021-07-15 10:10] LABS: ALBUMIN 3.9 g/dL (3.4-5.0); TOTAL BILIRUBIN 0.6 mg/dL (0.2-1.0); TOTAL PROTEIN 7.9 g/dL (6.4-8.2)
[2021-07-15 10:17] LABS: BASO # 0.1 x10^3/uL (0.0-0.2); BASO % 1 % (0-3); EOS # 0.1 x10^3/uL (0.0-0.7); EOS % 1 % (0-3); HEMATOCRIT 50.1 % (39.0-53.0); HEMOGLOBIN 17.4 g/dL (13.0-17.5); LYMPH # 2.7 x10^3/uL (1.0-4.8); LYMPH % 28 % (24-48); MEAN CORPUSCULAR HEMOGLOBIN 33 pg (25-35); MEAN CORPUSCULAR HGB CONC 35 g/dL (31-37); MEAN CORPUSCULAR VOLUME 95 fL (79-100); MONO % 10 % (0-9); NEUT # 5.9 x10^3uL (1.8-7.7); NEUT % 61 % (31-73); PLATELET COUNT 212 x10^3/uL (140-400); RED BLOOD COUNT 5.28 x10^6/uL (4.30-5.70); RED CELL DISTRIBUTION WIDTH 13.4 % (11.5-14.5); WHITE BLOOD COUNT 9.7 x10^3/uL (4.0-11.0)
== END 2021-07-15 11:05 | disposition home or self-care (01) ==
LOC: ER 08:53
DX: R07.2 Precordial pain (principal); I10 Essential (primary) hypertension; F41.9 Anxiety disorder, unspecified; F10.20 Alcohol dependence, uncomplicated; Z20.822 Contact with and (suspected) exposure to COVID-19; Y90.0 Blood alcohol level of less than 20 mg/100 ml
CPT/HCPCS: 36415; 71045; 80053; 84484; 85025; 93005; 96374; 99285; G0480; J2060

== ENCOUNTER 2021-08-06 21:14 | Emergency (ER) | payer SELFPAY ==
[~2021-08-06] VITALS: Ht 180.3 cm; Wt 122.0 kg
--- NOTE | 2021-08-06 22:22 | PHYS DOC ---
Past History Past Medical History: Alcoholism, Anxiety, Asthma, Hypertension, Seizure Additional Past Medical Histor: ASD, BACK PAIN (ALEXEI VALENZUELA APRN) Past Surgical History: No Surgical History (ALEXEI VALENZUELA APRN) Smoking: Greater than 1 pack/day Alcohol Use: Sober Drug Use: None (ALEXEI VALENZUELA APRN) General Adult EDM: Chief Complaint: ALLERGIC REACTION HPI: HPI: Patient is a 31-year-old male that presents today from [facility] with concern with allergic reaction. Patient states around 7:00 this evening he started feeling his face gets flushed in the back of his legs to get flushed, he states that occurred about 1 hour after taking his lisinopril at 6 PM. Patient states he is taking lisinopril on and off for the last couple years and has never had a reaction like this. Patient states he is also very anxious, states he has not been sleeping very well, and states that he recently lost his job and has been taking care of his dad at home. Patient also states he has a history of asthma but does not have an inhaler. Patient does smoke cigarettes, he states that he also quit drinking about a month ago (ALEXEI VALENZUELA APRN) Review of Systems: Review of Systems: Constitutional: Denies fever or chills Eyes: Denies change in visual acuity HENT: Denies nasal congestion or sore throat Respiratory: Denies cough or shortness of breath Cardiovascular: Denies chest pain or edema GI: Denies abdominal pain, nausea, vomiting, bloody stools or diarrhea : Denies dysuria Musculoskeletal: Denies back pain or joint pain Integument: Face flushed and rash behind legs Neurologic: Denies headache, focal weakness or sensory changes Endocrine: Denies polyuria or polydipsia Lymphatic: Denies swollen glands Psychiatric: Denies depression or anxiety (ALEXEI VALENZUELA APRN) Allergies: Allergies: Allergies Coded Allergies Type Severity Reaction Last Updated Verified No Known Drug Allergies 04/24/19 No (ALEXEI VALENZUELA APRN) Physical Exam: PE: Constitutional: Well developed, well nourished, no acute distress, non-toxic appearance, anxious [] HENT: Normocephalic, atraumatic, bilateral external ears normal, oropharynx moist, no oral exudates, nose normal. [] Eyes: PERRLA, EOMI, conjunctiva normal, no discharge. [] Neck: Normal range of motion, no tenderness, supple, no stridor. [] Cardiovascular:Heart rate regular rhythm, no murmur [] Lungs & Thorax: Bilateral breath sounds wheezes noted throughout the lungs right greater than left [] Abdomen: Bowel sounds normal, soft, no tenderness, no masses, no pulsatile masses. [] Skin: Warm, dry, no erythema, face appears flushed and reddened area behind the thighs noted as well Back: No tenderness, no CVA tenderness. [] Extremities: No tenderness, no cyanosis, no clubbing, ROM intact, no edema. [] Neurologic: Alert and oriented X 3, normal motor function, normal sensory function, no focal deficits noted. [] Psychologic: Affect normal, judgement normal, mood normal. [] (ALEXEI VALENZUELA APRN) Current Patient Data: Labs: Laboratory Tests Test 08/06/21 21:23 White Blood Count 11.8 x10^3/uL Red Blood Count 4.77 x10^6/uL Hemoglobin 15.5 g/dL Hematocrit 45.4 % Mean Corpuscular Volume 95 fL Mean Corpuscular Hemoglobin 33 pg Mean Corpuscular Hemoglobin Concent 34 g/dL Red Cell Distribution Width 13.0 % Platelet Count 209 x10^3/uL Neutrophils (%) (Auto) 57 % Lymphocytes (%) (Auto) 34 % Monocytes (%) (Auto) 6 % Eosinophils (%) (Auto) 3 % Basophils (%) (Auto) 1 % Neutrophils # (Auto) 6.7 x10^3uL Lymphocytes # (Auto) 4.0 x10^3/uL Monocytes # (Auto) 0.7 x10^3/uL Eosinophils # (Auto) 0.3 x10^3/uL Basophils # (Auto) 0.1 x10^3/uL Sodium Level 138 mmol/L Potassium Level 3.5 mmol/L Chloride Level 104 mmol/L Carbon Dioxide Level 25 mmol/L Anion Gap 9 Blood Urea Nitrogen 16 mg/dL Creatinine 0.8 mg/dL Estimated GFR (Cockcroft-Gault) 112.8 Glucose Level 144 mg/dL Calcium Level 8.9 mg/dL Troponin I High Sensitivity 9 ng/L Current Medications Medications (Trade) Dose Ordered Sig/David Route PRN Reason Start Time Stop Time Status Last Admin Dose Admin Prednisone (Prednisone) 60 mg 1X ONCE PO 08/06/21 22:30 08/06/21 22:38 DC 08/06/21 22:23 Diphenhydramine HCl (Benadryl) 25 mg 1X ONCE PO 08/06/21 22:30 08/06/21 22:38 DC 08/06/21 22:23 Famotidine (Pepcid) 20 mg 1X ONCE PO 08/06/21 22:30 08/06/21 22:38 DC 08/06/21 22:23 Albuterol/ Ipratropium (Duoneb) 3 ml 1X ONCE NEB 08/06/21 22:30 08/06/21 22:38 DC 08/06/21 22:39 Vital Signs: Vital Signs Date Time Temp Pulse Resp B/P (MAP) Pulse Ox O2 Delivery O2 Flow Rate FiO2 08/06/21 23:31 67 18 136/76 (96) 97 Room Air 08/06/21 22:40 100 Room Air 08/06/21 21:14 97.7 83 18 162/113 (129) 100 Room Air Vital Signs Date Time Temp Pulse Resp B/P (MAP) Pulse Ox O2 Delivery O2 Flow Rate FiO2 08/06/21 21:14 97.7 83 18 162/113 (129) 100 Room Air (ALEXEI VALENZUELA NEWSPAPER STUFFER) EKG: EKG: EKG done at [address] Bolaños at 3 no STEMI sinus rhythm heart rate of 87 with a MD interval of 130 ms with a QT interval of 362 ms [] (ALEXEI VALENZUELA NEWSPAPER STUFFER) Radiology/Procedures: Radiology/Procedures: REASON: chest pain PROCEDURE: CHEST AP ONLY XR CHEST 1V Clinical Indication: Reason: chest pain / Comparison: AP chest July 15, 2021. Findings: The cardiomediastinal silhouette is normal. Lungs are clear. There is no pneumothorax. No pleural effusion is appreciated. No acute bone abnormality. IMPRESSION: No acute cardiopulmonary process. Electronically signed by: Andres Adam MD (08/06/2021 10:43 PM) [facility] [] (ALEXEI VALENZUELA NEWSPAPER STUFFER) Heart Score: C/O Chest Pain: N/A Risk Factors: Risk Factors: DM, Current or recent (<one month) smoker, HTN, HLP, family history of CAD, obesity. Risk Scores: Score 0 - 3: 2.5% MACE over next 6 weeks - Discharge Home Score 4 - 6: 20.3% MACE over next 6 weeks - Admit for Clinical Observation Score 7 - 10: 72.7% MACE over next 6 weeks - Early Invasive Strategies (ALEXEI VALENZUELA APRN) Course & Med Decision Making: Course & Med Decision Making Pertinent Labs and Imaging studies reviewed. (See chart for details) 2300 reassessed patient patient states he feels much better, he says his redness is better. Patient sitting in the bed and looking on his phone says he feels much better. We will send patient home, will have patient follow-up with [facility] to decide if the lisinopril is should be continued. Patient is agreeable to the plan of care and is okay with going home (ALEXEI VALENZUELA APRN) Dragon Disclaimer: Dragon Disclaimer: This electronic medical record was generated, in whole or in part, using a voice recognition dictation system. (ALEXEI VALENZUELA APRN) Departure Departure: Impression: Primary Impression: Allergic reaction Qualified Codes: T78.40XA - Allergy, unspecified, initial encounter Disposition: HOME / SELF CARE / HOMELESS Condition: STABLE Referrals: PCP,NO (PCP) Patient Instructions: Drug Allergy Additional Instructions: Follow-up with [facility] in the a.m., I would hold lisinopril until follow-up with them Continue to take Benadryl 25 mg every 6 hours as needed for allergic reaction Take prednisone over the next 5 days Return to the emergency department for increased shortness of air, chest pain, or swelling of your lips or tongue Scripts Prednisone (PREDNISONE) 20 Mg Tablet 3 TAB PO DAILY for allergies for 5 Days, #15 TAB Prov: ALEXEI VALENZUELA APRN 08/06/21 Attending Signature Attending Signature I have reviewed the PA/MANAGEMENT INSTRUCTOR's note and plan of care. I was available for consultation as needed during the patient's visit in the emergency department. I agree with the clinical impression, plan, and disposition. (APRIL BOLAÑOS DO) ALEXEI VALENZUELA APRN Aug 06, 2021 22:22 APRIL BOLAÑOS DO Aug 07, 2021 05:45
[2021-08-06] MEDS ORDERED: FAMOTIDINE 20 MG TABLET PO ONE (22:30)
[2021-08-06] MEDS ORDERED: diphenhydrAMINE HCL 25 MG CAPSULE PO ONE (22:30)
[2021-08-06] MEDS ORDERED: predniSONE 20 MG TABLET PO ONE (22:30)
[2021-08-06] MEDS ORDERED: IPRATRPIUM/ALBUTEROL 0.5/2.5MG 3 ML NEBU. NEB ONE (22:30)
[2021-08-06 22:32] LABS: BASO # 0.1 x10^3/uL (0.0-0.2); BASO % 1 % (0-3); CALCIUM 8.9 mg/dL (8.5-10.1); CREATININE 0.8 mg/dL (0.7-1.3); EOS # 0.3 x10^3/uL (0.0-0.7); EOS % 3 % (0-3); GFR 112.8; HEMATOCRIT 45.4 % (39.0-53.0); HEMOGLOBIN 15.5 g/dL (13.0-17.5); LYMPH % 34 % (24-48); MEAN CORPUSCULAR HEMOGLOBIN 33 pg (25-35); MEAN CORPUSCULAR HGB CONC 34 g/dL (31-37); MEAN CORPUSCULAR VOLUME 95 fL (79-100); MONO # 0.7 x10^3/uL (0.0-1.1); MONO % 6 % (0-9); NEUT # 6.7 x10^3uL (1.8-7.7); NEUT % 57 % (31-73); PLATELET COUNT 209 x10^3/uL (140-400); POTASSIUM 3.5 mmol/L (3.5-5.1); RED BLOOD COUNT 4.77 x10^6/uL (4.30-5.70); WHITE BLOOD COUNT 11.8 x10^3/uL (4.0-11.0)
--- NOTE | 2021-08-06 22:46 | RAD ---
XR CHEST 1V Clinical Indication: Reason: chest pain / Comparison: AP chest July 15, 2021. Findings: The cardiomediastinal silhouette is normal. Lungs are clear. There is no pneumothorax. No pleural eff usion is appreciated. No acute bone abnormality. IMPRESSION: No acute cardiopulmonary process. Electronically signed by: Andres Adam MD (08/06/2021 10:43 PM) [facility]
[2021-08-06] MEDS ORDERED: PRED20TA PO (23:09)
[2021-08-06 23:31] VITALS: BP 136/76
--- NOTE | 2021-08-07 00:15 | EKG ---
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
== END 2021-08-06 23:36 | disposition home or self-care (01) ==
LOC: ER 21:14
DX: T78.40XA Allergy, unspecified, initial encounter (principal); F10.20 Alcohol dependence, uncomplicated; F41.9 Anxiety disorder, unspecified; J45.909 Unspecified asthma, uncomplicated; I10 Essential (primary) hypertension; F17.200 Nicotine dependence, unspecified, uncomplicated; X58.XXXA Exposure to other specified factors, initial encounter; Y90.9 Presence of alcohol in blood, level not specified
CPT/HCPCS: 36415; 71045; 80048; 84484; 85025; 93005; 94640; 99285; J7512; Q0163